=== PATIENT | female | born 2000 | race Caucasian/White ===

== ENCOUNTER 2024-09-01 09:28 | Emergency (ER) | payer OTHER, SELFPAY ==
[2024-09-01] VITALS (28 sets, daily range): BP systolic 114–151; BP diastolic 55–101; PULSE 90–95; RESP 16–20; TEMP 36.6–37.3; O2SAT 91–100
--- NOTE | ~2024-09-01 | XR_ITS ---
XR chest 2V Ordering provider: Augustina Cruz PA-C History: 24 years Female with . fever, cough, FLU LIKE SYMP. . Comparison: None. FINDINGS: MEDIASTINUM: The cardiac silhouette is not enlarged. LUNGS: No infiltrates, effusions or pneumothorax. OTHER: No free air under the diaphragm. IMPRESSION: No acute cardiopulmonary pathology. Reviewed, dictated and finalized at location A.
--- NOTE | ~2024-09-01 | CT_ITS ---
CT abdomen pelvis w con Ordering provider: Augustina Cruz PA-C History: 24 years Female with . abd pain, vomiting . Comparison: None. Technique: CT abdomen and pelvis with IV and without oral contrast. Automated exposure control and it erative reconstruction technique were employed. The dose-length product was 994.39 mGy-cm. 100 mL Omn ipaque 350 was given IV. Findings: VISUALIZED LOWER CHEST: Normal. Focal thickening in the posterior pleura on the left side. UPPER ABDOMINAL ORGANS: Liver: Normal. Gallbladder: Normal. Spleen: Normal. Stomach/duodenum: Normal. Pancreas: Normal. Adrenals: Normal. Kidneys: Normal. PELVIC ORGANS: The bladder is underfilled. Left ovarian cyst measuring 2.5 cm. BOWEL AND MESENTERY: Colon: No evidence of diverticulitis. Normal appendix. Small Bowel: Normal. No obstruction. Peritoneum/mesentery: No free air or free fluid. No mesenteric lymphadenopathy. Mesenteric lymph node s are seen with the largest measures 1.3 cm. RETROPERITONEUM: Normal aorta. No retroperitoneal lymphadenopathy. Small para-aortic lymph nodes. MUSCULOSKELETAL: Superficial soft tissues: The superficial soft tissues are normal. Bones: Normal spine. IMPRESSION: 1. No evidence of appendicitis, diverticulitis or intestinal obstruction. Reviewed, dictated and finalized at location A.
--- NOTE | 2024-09-01 09:44 | ED_ITS ---
HPI - Nausea/Vomiting/Diarrhea General Chief complaint: Nausea/Vomiting/Diarrhea Stated complaint: N/V/D x1 day, sent by [facility] Time Seen by Provider: 09/01/24 09:42 Source: patient Mode of arrival: ambulatory Limitations: no limitations History of Present Illness HPI Narrative: This is a 24 year old female that presents to the ER for nausea and vomiting. Reports fever, fatigue, myalgias, abdominal pain, cough. Ongoing since yesterday. Related Data Allergies Allergy/AdvReac Type Severity Reaction Status Date / Time amoxicillin Allergy Unknown Verified 09/01/24 09:48 Review of Systems 2 Review of Systems: CONSTITUTIONAL: Reports fever GASTROINTESTINAL: Reports abdominal pain, nausea, vomiting MUSCULOSKELETAL: Reports myalgia. NEUROLOGIC: Reports generalized weakness. All systems reviewed & are unremarkable except as noted in HPI and below PMFSH Past Medical History Medical History (Updated 09/01/24 @ 13:21 by Augustina Cruz PA-C) History of anxiety Social History Social History (Updated 09/01/24 @ 11:43 by Augustina Cruz PA-C) Substance use: current Substance use type: marijuana Exam 2 Narrative: GENERAL: Well-appearing, well-nourished, and in no acute distress. HEAD: Normocephalic, atraumatic. EYES: EOMI. ENT: Nares clear, no rhinorrhea or epistaxis. Mucous membranes moist. Oropharynx without tonsillar hypertrophy exudate or other lesions. Bilateral TMs pearly ferguson non-bulging NECK: Supple. No adenopathy or masses. CHEST: Clear to auscultation. No respiratory distress. No wheezes rales or rhonchi HEART: Regular rate and rhythm. No murmur heard. Normal peripheral pulses. ABDOMEN: Soft, nondistended, normal active bowel sounds. Mild tenderness to palpation in the epigastrium, without guarding EXTREMITIES: Normal range of motion. No edema. SKIN: Warm, dry, no rash. NEURO: No focal deficits. Alert and oriented x3. PSYCH: Normal mood and affect Course Course Emergency Course: Patient updated on workup. Tolerating p.o. challenge Vital Signs Vital signs: Vital Signs Temperature 97.8 F 09/01/24 09:44 Pulse Rate 90 09/01/24 09:44 Respiratory Rate 16 09/01/24 09:44 Blood Pressure 138/63 09/01/24 09:44 Pulse Oximetry 100 09/01/24 09:44 Oxygen Delivery Room Air 09/01/24 09:44 Temperature 99.2 F 09/01/24 11:02 Pulse Rate 92 09/01/24 11:02 Respiratory Rate 18 09/01/24 11:02 Blood Pressure 116/70 09/01/24 14:06 Pulse Oximetry 99 09/01/24 14:06 Oxygen Delivery Room Air 09/01/24 09:44 MDM - Nausea/Vomiting/Diarrhea MDM Narrative Medical decision making narrative: Patient presents the emergency department for abdominal pain, vomiting, cough, myalgias. She is afebrile and nontoxic appearing. Her vitals are stable. Cbc without leukocytosis. Metabolic panel some evidence of dehydration, patient hydrated with a L of IV fluids in the ED. urine without evidence of infection. test is negative. CT abdomen pelvis without acute findings. Chest x- ray without acute cardiopulmonary abnormality. Influenza and COVID screens are negative. Patient updated on workup. Tolerating p.o. challenge. She is to follow up with primary provider. She was given warnings to return to the ER Differential Diagnosis Differential diagnosis: Likely food poisoning, gastroenteritis, dehydration and other (gastritis, GERD, biliary colic, pancreatitis, pneumonia, COVID, influenza, RSV) Lab Data Attestation: I reviewed the patient's lab results. 09/01/24 10:23 09/01/24 10:23 Labs: Lab Results 09/01/24 09/01/24 09/01/24 Range/Units 09:49 10:09 10:23 WBC 5.1 (4.5-10.0) K/mm3 RBC 5.01 (4.2-5.4) M/mm3 Hgb 14.9 (12.0-15.0) g/dL Hct 43.5 (37.0-47.0) % MCV 86.8 (80-100) fl MCH 29.7 (26-34) pg MCHC 34.3 (32-36) g/dl RDW 11.8 (11.5-14.5) % Plt Count 197 (150-375) k/mm3 MPV 10.7 H (7.4-10.4) fl Immature Gran % (Auto) 0.6 H (0-0.5) % Neut % (Auto) 77.1 H (45.5-73.1) % Lymph % (Auto) 14.6 L (18.3-44.2) % [place] % (Auto) 7.3 (2.6-8.5) % Eos % (Auto) 0.0 (0-4.4) % Baso % (Auto) 0.4 (0.2-1.2) % Lymph # (Auto) 0.74 L (0.9-3.2) K/mm3 [place] # (Auto) 0.4 (0.1-0.6) K/mm3 Eos # (Auto) 0.0 (0-0.3) K/mm3 Baso # (Auto) 0.0 (0.0-0.1) K/mm3 Abs Immat Gran (auto) 0.03 (0.00-0.031) K/mm3 Absolute Neuts (auto) 3.9 (1.3-6.7) K/mm3 Absolute Nucleated RBC 0.000 (0.0-0.012) K/mm3 Nucleated RBC % 0.0 (0.0-0.2) % Sodium 137 (137-145) mmol/L Potassium 3.5 (3.4-5.0) mmol/L Chloride 103 (98-107) mmol/L Carbon Dioxide 21 L (22-30) mmol/L Anion Gap 13 H (4-12) mmol/L BUN 8 (7-17) mg/dL Creatinine 0.74 (0.7-1.0) mg/dL Estim Creat Clear Calc 128 ml/min Estimated GFR > 60 (59 - ) Glucose 96 (65-110) mg/dL Calcium 8.7 (8.4-10.2) mg/dL Total Bilirubin 0.9 (0.2-1.3) mg/dL AST 40 H (14-36) U/L ALT 36 H (6-35) U/L Alkaline Phosphatase 97 (38-126) U/L Total Protein 8.0 (6.3-8.2) g/dL Albumin 4.6 (3.5-5.1) g/dL Lipase 74 (23-300) U/L Urine Color Yellow (Yellow) Urine Appearance Clear (Clear) Urine pH 5.5 (5.0-9.0) Ur Specific [place] 1.017 (1.001-1.035) Urine Protein Trace (Negative) mg/dL Urine Glucose (UA) Negative (Negative) mg/dL Urine Ketones 1+ H (Negative) mg/dL Ur Blood (Man) Trace (Negative) Urine Nitrate Negative (Negative) Urine Bilirubin Negative (Negative) Urine Urobilinogen 0.2 (<2.0) mg/dL Leukocyte Esterase Rfl Trace H (Negative) KEATON/UL Urine RBC 3-5 H (0-2) /hpf Urine WBC 0-5 (0-3) /hpf Ur Squamous Epith Cells Few (Few) /hpf Urine Bacteria None seen /hpf Urine Casts 0-2 POC Urine HCG, Qual Negative (Negative) Influenza A (RT-PCR) Negative (Negative) Influenza B (RT-PCR) Negative (Negative) SARS-CoV-2 RNA (RT-PCR) Negative (Negative) Imaging Data Radiologist's impression: ITS Impressions Abdomen/Pelvis CT 09/01/24 11:29 IMPRESSION: 1. No evidence of appendicitis, diverticulitis or intestinal obstruction. Chest X-Ray 09/01/24 11:55 IMPRESSION: No acute cardiopulmonary pathology. Critical Care Time Critical Care Time Critical Care Time: No Discharge Plan Discharge Clinical Impression: Acute viral syndrome Patient Disposition: Home, Self-Care Condition: Stable Instructions: Viral Syndrome (ED) Additional Instructions: Return to the emergency department if you experience fever >101, chest pain, shortness of breath, worsening abdominal pain with nausea and vomiting, you are unable to keep down liquids or solids, or any other symptoms that are concerning to you. Rest. Remain well hydrated. [id number] pain medication as needed. Ondansetron as needed for nausea Follow up with primary care doctor Patient Language: Pashto Prescriptions: New ondansetron 4 mg tablet,disintegrating 4 mg PO Q8H PRN (Reason: nausea and vomiting) Qty: 10 0RF Follow-up/Referrals: PHYSICIAN NOT ON STAFF,NONSTAFF [Non-Staff] - Rufino Ulrich MD [Physician] -
[2024-09-01 09:50] LABS: BEDSIDEPREGUCG Negative (Negative)
[2024-09-01 10:22] LABS: Add Urine Microscopic? YES; Appearance Urine Clear (Clear); Bacteria Urine None Seen /hpf; Bilirubin Urine Negative (Negative); Blood Urine Trace (Negative); Color Urine Yellow (Yellow); Glucose Urine UA Negative (Negative); Ketones Urine 1+ mg/dL (Negative); Leukocyte Esterase Ur Trace LEU/UL (Negative); Nitrate Urine Negative (Negative); Non Pathogenic Casts 0-2; Protein Urine Trace mg/dL (Negative); Specific Grav Ur 1.017 (1.001-1.035); Squamous Epithelial Cell Urine Few /hpf (Few); Urobilinogen Urine 0.2 mg/dL (<2.0); WBC Urine 0-5 /hpf (0-3); pH Urine 5.5 (5.0-9.0)
[2024-09-01 10:31] LABS: Basophils Percent Auto 0.4 % (0.2-1.2); Hematocrit 43.5 % (37.0-47.0); Hemoglobin 14.9 g/dL (12.0-15.0); Immature Granulocyte Absolute 0.03 K/mm3 (0.00-0.031); Immature Granulocyte Percent A 0.6 % (0-0.5); Lymphocytes Absolute Auto 0.74 K/mm3 (0.9-3.2); Lymphocytes Percent Auto 14.6 % (18.3-44.2); Mean Corpuscular HGB Conc 34.3 g/dl (32-36); Mean Corpuscular Hemoglobin 29.7 pg (26-34); Mean Corpuscular Volume 86.8 fl (80-100); Mean Platelet Volume 10.7 fl (7.4-10.4); Monocytes Absolute Auto 0.4 K/mm3 (0.1-0.6); Monocytes Percent Auto 7.3 % (2.6-8.5); Neutrophils Absolute Auto 3.9 K/mm3 (1.3-6.7); Neutrophils Percent Auto 77.1 % (45.5-73.1); Platelet Count Result 197 k/mm3 (150-375); Red Blood Count 5.01 M/mm3 (4.2-5.4); Red Cell Distribution Width 11.8 % (11.5-14.5); White Blood Count 5.1 K/mm3 (4.5-10.0)
[2024-09-01 10:41] LABS: Alanine Aminotransferase 36 U/L (6-35); Albumin Level 4.6 g/dL (3.5-5.1); Alkaline Phosphatase 97 U/L (38-126); Anion Gap 13 mmol/L (4-12); Aspartate Amino Transferase 40 U/L (14-36); Bilirubin,Total 0.9 mg/dL (0.2-1.3); Blood Urea Nitrogen 8 mg/dL (7-17); Calcium 8.7 mg/dL (8.4-10.2); Carbon Dioxide 21 mmol/L (22-30); Chloride 103 mmol/L (98-107); Estimated CRCL calculation 128 ml/min; Estimated Glomerular Filt Rate > 60; Glucose 96 mg/dL (65-110); Lipase 74 U/L (23-300); Potassium 3.5 mmol/L (3.4-5.0); Sodium 137 mmol/L (137-145)
[2024-09-01 10:55] LABS: Influenza A QL RT-PCR Negative (Negative); Influenza B QL RT-PCR Negative (Negative); SARS-CoV-2 RNA PCR Negative (Negative)
[2024-09-01] MEDS: SODIUM CHLORIDE 0.9% IV 1,000 ML 999 ML IV CONT (11:00)
[2024-09-01] MEDS: ONDANSETRON INJ 4 MG/2 ML VIAL IV PUSH (11:01)
[2024-09-01] MEDS: ACETAMINOPHEN 500 MG TABLET 1000 MG PO (13:05)
== END 2024-09-01 14:08 | disposition home or self-care (01) ==
PROVIDERS: Emergency Medicine; Emergency Provider Physician Assistant
DX: B34.9 Viral infection, unspecified (principal); Z20.822 Contact with and (suspected) exposure to COVID-19; F41.9 Anxiety disorder, unspecified
CPT/HCPCS: 36415; 71046; 74177; 80053; 81001; 81025; 83690; 85025; 87636; 96361; 96374; 99284; A9270; J2405; J7030; Q9967